=== PATIENT | female | born 1940 | race Caucasian/White ===

== ENCOUNTER 2016-04-19 07:15 | Day surgery (SDC) | payer MEDICARE ==
[2016-04-18 10:02] LABS: BASOPHILS 0.2 % (0.0-2.0); EOSINOPHILS 2.5 % (0-7); HEMATOCRIT 37.4 % (36.0-48.0); HEMOGLOBIN 12.5 g/dL (12-16); IMMATURE GRANULOCYTES 0.3 % (0-5); LYMPHOCYTES 23.4 % (15-50); MCH 31.4 pg (26.0-34.0); MCHC 33.4 g/dL (31.0-37.0); MEAN PLATELET VOLUME 9.6 fL (7.4-10.4); MONOCYTES 7.4 % (2-11); NEUTROPHILS 66.2 % (40-80); PLATELET COUNT 239 10x3/uL (130-400); RBC 3.98 10x6/uL (4.00-5.40); RDW 12.6 % (11.5-14.5); WBC 8.7 10x3/uL (4.8-10.8)
[2016-04-18 10:12] LABS: APTT 24.4 SECONDS (22.8-39.4); INR 1.08 (0.85-1.17); PROTIME 13.9 SECONDS (11.6-15.0)
[~2016-04-19] VITALS: Ht 144.8 cm; Wt 46.7 kg
[~2016-04-19 07:15] MED LIST: CARAFATE1 G PO; HYDROCODONE-APA1 TAB PO; OMEPRAZOLE40 MG PO; PROPRANOLOL HCL20 MG PO; VALIUM 2 MG TAB2 MG PO; VITAMIN B-121000 MCG PO; ZOCOR40 MG PO; ZOLOFT100 MG PO
[2016-04-19 08:06] VITALS: BP 134/70; Ht 144.8 cm; Wt 46.7 kg
[2016-04-19] MEDS ORDERED: OXYCODONE HCL5 MG PO (10:47)
--- NOTE | 2016-04-19 11:20 | NUR ---
1115-RECEIVED PT FROM PACU AWAKE AND ALERT, VSS NO N/V AT THIS TIME ICE CHIPS GIVEN STERI STIPS INTACT. NO DRAINAGE NOTED WILL CONTINUE TO MONITOR
--- NOTE | 2016-04-19 11:45 | NUR ---
1145-report to robin juan
--- NOTE | 2016-04-19 13:00 | NUR ---
UP TO BATHROOM, GAIT STEADY. VOIDED WITHOUT DIFFICULTY. IV REMOVED WITH TIP INTACT. DISCHARGE INSTRUCTIONS AND RX GIVEN, VOICED UNDERSTANDING.
--- NOTE | 2016-04-19 13:30 | NUR ---
DISCHARGED HOME VIA .
--- NOTE | 2016-04-19 13:33 | OP ---
PATIENT NAME: WILL SHEEHAN MEDICAL RECORD: [id number] :38 LOCATION:[facility] ADMISSION DATE: SURGEON: MINI GREENE MD DATE OF OPERATION: 04/19/2016 SURGEON: Mini Greene MD. PREOPERATIVE DIAGNOSES: 1. Chronic cholecystitis. 2. Right upper quadrant pain. POSTOPERATIVE DIAGNOSES: 1. Chronic cholecystitis. 2. Right upper quadrant pain. PROCEDURE PERFORMED: Laparoscopic cholecystectomy. ANESTHESIA: General. COMPLICATIONS: None. ESTIMATED BLOOD LOSS: 20 cc. Case was contaminated. SPECIMENS: Gallbladder. OPERATIVE COURSE: After consent was obtained, the patient was taken to the operating room and placed in the supine position on the operating table. Next, general anesthesia was given via endotracheal intubation after a timeout was taken to confirm the correct patient and procedure. The abdomen was prepped and draped in typical sterile fashion. Local anesthetic was injected just above the umbilicus. A stab incision was made with an 11-blade scalpel. Using a 5-mm bladeless optical trocar, the abdomen was entered under direct laparoscopic vision. Adequate pneumoperitoneum was achieved. The abdominal cavity was inspected. No evidence of bowel injury. No evidence of bleeding. The patient was placed in the steep reverse Trendelenburg position. At this time, all remaining trocars were placed after the administration of local anesthetic under direct laparoscopic vision, two 5-mm trocars in the right upper quadrant and 11-mm trocar in the subxiphoid position. At this time, the fundus of the gallbladder was grasped and retracted cephalad. The infundibulum was grasped and retracted laterally. The peritoneum was incised using electrocautery. Blunt dissection was then performed with a [place] dissector until a critical view was obtained; cystic duct lateral, cystic artery medial, liver in the posterior window. Three clips were placed in the proximal cystic duct, 1 clip distal and 2 clips were placed in the proximal cystic artery. The duct and artery were then transected with laparoscopic Metzenbaum scissors. Remaining portion of the gallbladder was then dissected off the liver bed using electrocautery. Once complete, it was grasped with the tenaculum and removed with the 11-mm trocar and sent for permanent pathology. The operative field was copiously irrigated and suctioned. Careful attention was paid to the liver bed for hemostasis, which was obtained using electrocautery. The operative site was irrigated and suctioned. The clips were inspected, there were [address] in the cystic duct, [address] in the cystic artery. At this time, the remaining portion of the abdominal cavity was inspected. There was no evidence OPERATIVE REPORT [id number] WILL SHEEHAN of bowel injury. No evidence of bleeding, no evidence of bile leak. All remaining instruments were removed. The abdomen was desufflated. Trocars were removed. Skin was closed with 4-0 Monocryl, Mastisol and Steri-Strips. At the end of the case, all needle and instrument counts were correct. No complications occurred. TRANSINT:[id number] Voice Confirmation ID: [id number] DOCUMENT ID: [id number] MINI GREENE MD at 1333 CC: [id number] DICTATION DATE: 04/19/16 1051 RECEPTION AGENT: 04/19/16 1156 [id number] [place] [address]
== END 2016-04-19 13:30 | disposition home or self-care (01) ==
LOC: D.OPS 07:15 → D.PAN 09:00 → D.OPS 09:00 → D.PAN 09:30 → D.OPS 10:00
PROVIDERS: Anesthesiology
DX: K81.1 Chronic cholecystitis (principal); K21.9 Gastro-esophageal reflux disease without esophagitis; I49.9 Cardiac arrhythmia, unspecified; J40 Bronchitis, not specified as acute or chronic